=== PATIENT | male | born 1940 | race Two or more races ===

== ENCOUNTER 2021-03-29 19:12 | Inpatient (IN) | payer OTHER ==
[~2021-03-29] VITALS: Ht 172.7 cm; Wt 104.4 kg
[2021-03-29 20:16] LABS: Basophils # (auto) 0 10 ^3/uL (0-0.2); Basophils % (auto) 0.5 % (0.0-2.0); Eosinophils # (auto) 0.2 10 ^3/uL (0-0.8); Eosinophils % (auto) 2.2 % (0.0-7.0); Hematocrit 28.8 % (36.0-46.0); Hemoglobin 9.8 g/dL (12.2-16.2); Lymphocytes # (auto) 1.6 10 ^3/uL (0.4-5.4); Lymphocytes % (auto) 20.8 % (10.0-50.0); Mean Corpuscular Hemoglobin 31.1 pg (28.0-32.0); Mean Corpuscular Hgb Conc. 33.9 g/dL (32.0-36.0); Mean Corpuscular Volume 91.7 fL (80.0-100.0); Monocytes # (auto) 0.7 10 ^3/uL (0-1.3); Neutrophils # (auto) 5.3 10 ^3/uL (1.6-8.6); Neutrophils % (auto) 67.5 % (37.0-80.0); Nucleated Red Blood Cells % 0.1 %; Red Blood Cells 3.14 10^6/uL (4.0-5.20); Red Cell Distribution Width 14.2 % (11.8-14.3); White Blood Cell 7.9 10^3/uL (4.4-10.8)
[2021-03-29 20:34] LABS: Albumin 3.3 g/dL (3.4-5.0); BUN/Creatinine Ratio 9.8; Calcium 8.9 mg/dL (8.5-10.1); Magnesium 2.3 mg/dL (1.6-2.6); Potassium 4.9 mmol/L (3.5-5.1)
[2021-03-29 20:43] LABS: Bilirubin, Total 0.5 mg/dL (0.2-1.0); Total Protein 7.5 g/dL (6.4-8.2)
[2021-03-30] MEDS ORDERED: NITROGLYCERIN 0.2MG/HR TOPICAL PATCH TD ONE (03:00)
[2021-03-30] MEDS ORDERED: ENALAPRILAT 1.25 MG/ML-1ML VIAL IV ONE (03:00)
[2021-03-30 08:57] LABS: Calcium 8.6 mg/dL (8.5-10.1); Potassium 4.7 mmol/L (3.5-5.1)
[2021-03-30 08:59] LABS: BUN/Creatinine Ratio 10.4
[2021-03-30] MEDS ORDERED: MORPHINE SULFATE INJECTION 2 MG/ML SYRG IV PRN (09:30)
[2021-03-30] MEDS ORDERED: NITROGLYCERIN 0.4 MG SL TAB SL PRN (09:30)
[2021-03-30] MEDS ORDERED: DEXTROSE (50%) 50ML SYRG IV ONE (09:45)
[2021-03-30] MEDS ORDERED: SOD CHL 0.45% 1,000 ML IV ONE ×2 (09:45)
[2021-03-30 11:06] LABS: INR 1.03 (0.9-1.15)
[2021-03-30] MEDS ORDERED: ACCU-CHEK COMFORT CURVE STRIP VI ONE (11:30)
[2021-03-30] MEDS ORDERED: InsuLIN REG 1unit/0.01ml Soln (100units/ml) SC ONE (11:30)
[2021-03-30] MEDS: FUROSEMIDE 40 MG/4 ML VIAL IV SCH (11:50)
[2021-03-30 13:30] LABS: Urine Bacteria NONE SEEN /hpf (None Seen); Urine Blood TRACE /uL (Negative); Urine Specific Gravity 1.007 (1.001-1.035); Urine WBC 1 /hpf (0 - 3)
[2021-03-30 13:50] LABS: Protein, Urine 134.9 mg/dL (0.0-11.9)
[2021-03-30 22:00] VITALS: BP 159/82
[2021-03-31 05:16] VITALS: BP 152/80
[2021-03-31 06:30] LABS: Calcium 8.8 mg/dL (8.5-10.1); Potassium 4.5 mmol/L (3.5-5.1)
[2021-03-31 06:35] LABS: BUN/Creatinine Ratio 10.6; Bilirubin, Total 0.3 mg/dL (0.2-1.0); Total Protein 6.8 g/dL (6.4-8.2)
[2021-03-31 06:36] LABS: Basophils # (auto) 0 10 ^3/uL (0-0.2); Basophils % (auto) 0.7 % (0.0-2.0); Eosinophils # (auto) 0.2 10 ^3/uL (0-0.8); Eosinophils % (auto) 3.5 % (0.0-7.0); Hematocrit 26.4 % (41.0-53.0); Hemoglobin 9.1 g/dL (13.5-17.5); Lymphocytes # (auto) 1.1 10 ^3/uL (0.4-5.4); Lymphocytes % (auto) 16.7 % (10.0-50.0); Mean Corpuscular Hemoglobin 31.5 pg (28.0-32.0); Mean Corpuscular Hgb Conc. 34.7 g/dL (32.0-36.0); Mean Corpuscular Volume 90.9 fL (80.0-100.0); Monocytes # (auto) 0.7 10 ^3/uL (0-1.3); Monocytes % (auto) 9.9 % (0.0-12.0); Neutrophils # (auto) 4.7 10 ^3/uL (1.6-8.6); Neutrophils % (auto) 69.2 % (37.0-80.0); Red Cell Distribution Width 14.3 % (11.8-14.3); White Blood Cell 6.8 10^3/uL (4.4-10.8)
[2021-03-31 08:58] VITALS: BP 148/78
[2021-03-31] MEDS: FUROSEMIDE 40 MG/4 ML VIAL IV SCH (10:26)
[2021-03-31 12:38] VITALS: BP 146/74
[2021-03-31 17:00] VITALS: BP 151/76
[2021-03-31] MEDS ORDERED: HYDR50TA15 PO (17:03)
[2021-03-31] MEDS: SEVELAMER 800 MG TAB PO SCH (18:17)
[2021-03-31 22:00] VITALS: BP 172/84
[2021-03-31 23:45] VITALS: BP 159/90
[2021-04-01 05:27] VITALS: BP 131/77
[2021-04-01] MEDS ORDERED: SODIUM CHL 0.9% 1000 ML BAG XX ONE (07:00)
[2021-04-01 07:20] LABS: Basophils # (auto) 0.1 10 ^3/uL (0-0.2); Basophils % (auto) 0.7 % (0.0-2.0); Eosinophils # (auto) 0.3 10 ^3/uL (0-0.8); Eosinophils % (auto) 4.4 % (0.0-7.0); Hematocrit 26.9 % (41.0-53.0); Hemoglobin 9.2 g/dL (13.5-17.5); Lymphocytes # (auto) 1.6 10 ^3/uL (0.4-5.4); Lymphocytes % (auto) 22.5 % (10.0-50.0); Mean Corpuscular Hemoglobin 30.9 pg (28.0-32.0); Mean Corpuscular Hgb Conc. 34.2 g/dL (32.0-36.0); Mean Corpuscular Volume 90.6 fL (80.0-100.0); Monocytes # (auto) 0.6 10 ^3/uL (0-1.3); Monocytes % (auto) 8.2 % (0.0-12.0); Neutrophils # (auto) 4.7 10 ^3/uL (1.6-8.6); Neutrophils % (auto) 64.2 % (37.0-80.0); Nucleated Red Blood Cells % 0.1 %; Red Blood Cells 2.97 10^6/uL (4.5-5.90); Red Cell Distribution Width 14.1 % (11.8-14.3); White Blood Cell 7.3 10^3/uL (4.4-10.8)
[2021-04-01 07:33] LABS: Potassium 4.5 mmol/L (3.5-5.1)
[2021-04-01 07:41] LABS: Albumin 2.9 g/dL (3.4-5.0); BUN/Creatinine Ratio 11.2; Bilirubin, Total 0.5 mg/dL (0.2-1.0); Calcium 8.5 mg/dL (8.5-10.1); Total Protein 6.6 g/dL (6.4-8.2)
[2021-04-01 07:49] LABS: Partial Thromboplastin Time 26.3 sec (23.0-31.2)
[2021-04-01] MEDS: SEVELAMER 800 MG TAB PO SCH ×3 (08:00→18:01)
[2021-04-01 09:00] VITALS: BP 139/77
[2021-04-01] MEDS: FUROSEMIDE 40 MG/4 ML VIAL IV SCH (10:00)
[2021-04-01] MEDS: B-COMPLEX W/ C & FOLIC ACID(NEPHROVITE TAB) PO SCH (10:00)
[2021-04-01] MEDS ORDERED: LIDOCAINE 2%HCL (LOCAL ANESTH.) INJ 20ML MDV ONE (10:27)
[2021-04-01] MEDS ORDERED: HEPARIN SODIUM (PORCINE) 5000 UNITS/ML 1ML VIAL ONE (10:59)
[2021-04-01] MEDS ORDERED: fentaNYL CITRATE 100 MCG/2 ML VL ONE (11:00)
[2021-04-01] MEDS ORDERED: MIDAZOLAM HCL 2MG/2ML 2ml VIAL (1mg/ml) ONE (11:00)
[2021-04-01 16:38] VITALS: BP 153/78
[2021-04-01 17:23] LABS: Urine Bacteria FEW /hpf (None Seen); Urine Blood 3+ /uL (Negative); Urine Hyaline Cast FEW /lpf (0 - 2); Urine Mucus FEW (None Seen); Urine Specific Gravity 1.021 (1.001-1.035); Urine WBC 62 /hpf (0 - 3)
[2021-04-01] MEDS ORDERED: EPOETIN ALFA-EPBX 10,000 UNIT/1ML VIAL SC ONE (21:00)
[2021-04-01 22:00] VITALS: BP 135/67
[2021-04-02 05:45] VITALS: BP 143/70
[2021-04-02] MEDS: SEVELAMER 800 MG TAB PO SCH ×3 (08:39→17:10)
[2021-04-02] MEDS: B-COMPLEX W/ C & FOLIC ACID(NEPHROVITE TAB) PO SCH (08:39)
[2021-04-02] MEDS: FUROSEMIDE 40 MG/4 ML VIAL IV SCH (08:40)
[2021-04-02 09:00] VITALS: BP 122/72
[2021-04-02 13:00] VITALS: BP 159/70
[2021-04-02 17:00] VITALS: BP 149/74
[2021-04-02 22:00] VITALS: BP 155/73
[2021-04-03 05:00] VITALS: BP 149/72
[2021-04-03] MEDS: SEVELAMER 800 MG TAB PO SCH ×2 (08:31→12:40)
[2021-04-03 09:00] VITALS: BP 149/69
[2021-04-03] MEDS: FUROSEMIDE 40 MG/4 ML VIAL IV SCH (09:31)
[2021-04-03] MEDS: B-COMPLEX W/ C & FOLIC ACID(NEPHROVITE TAB) PO SCH (09:31)
[2021-04-03] MEDS ORDERED: SEVE800T PO (11:50)
[2021-04-03 12:24] LABS: BUN/Creatinine Ratio 11.5; Calcium 8.6 mg/dL (8.5-10.1); Potassium 4.1 mmol/L (3.5-5.1)
[2021-04-03] MEDS ORDERED: CAR3125T PO (12:55)
[2021-04-03] MEDS ORDERED: FURO1TAB33 PO (12:55)
[2021-04-03] MEDS ORDERED: HYDR25TA87 PO (12:55)
[2021-04-03 13:00] VITALS: BP 159/65
[2021-04-03] MEDS ORDERED: hydrALAZINE HCL 25 MG TAB PO ONE (13:00)
[2021-04-04 12:42] LABS: Hepatitis B Surface Antibody Negative
[2021-04-04 13:15] LABS: Hepatitis A Total Antibody Positive
[2021-04-04 13:56] LABS: Hepatitis B Core Total AB Negative; Hepatitis B Surface Antigen Negative (Negative); Hepatitis C Antibody Negative (Negative)
== END 2021-04-03 15:18 | disposition home health service (06) | DRG 280 ==
LOC: EDSEX 19:14 → ER 19:14 → TELE 19:15 → UNDOADMIN 19:15 → OBSVTOIN 19:35 → UNDOADMOB 19:35 → OVERFLOW 19:35 → INTOOBSV 19:35 → ER 03-30 09:18 → TELE-WESTW 03-30 09:18 → OVERFLOW 03-30 09:18 → UNDOADMOB 03-30 09:18 → INTOOBSV 03-30 09:18 → TELE 03-30 09:28 → INTOOBSV 03-30 13:53 → OBSVTOIN 03-30 13:53 → OVERFLOW 03-30 20:24 → TELE-WESTW 03-30 20:24 → OBSVTOIN 03-31 13:56 → UNDODISIN 04-03 15:17 → TELE-WESTW 05-04 14:42 → TELE 05-04 14:42
PROVIDERS: ADMIT Internal Medicine; ATTEND Internal Medicine
PROC: 5A1D70Z Performance of Urinary Filtration, Intermittent, Less than 6 Hours Per Day (ICD-10-PCS; principal; 2021-04-01)
PROC: 0JH63XZ Insertion of Tunneled Vascular Access Device into Chest Subcutaneous Tissue and Fascia, Percutaneous Approach (ICD-10-PCS; 2021-04-01)
PROC: 02HV33Z Insertion of Infusion Device into Superior Vena Cava, Percutaneous Approach (ICD-10-PCS; 2021-04-01)
PROC: B5181ZA Fluoroscopy of Superior Vena Cava using Low Osmolar Contrast, Guidance (ICD-10-PCS; 2021-04-01)
PROC: B548ZZA Ultrasonography of Superior Vena Cava, Guidance (ICD-10-PCS; 2021-04-01)
DX: I21.4 Non-ST elevation (NSTEMI) myocardial infarction (principal); N18.6 End stage renal disease; I13.2 Hypertensive heart and chronic kidney disease with heart failure and with stage 5 chronic kidney disease, or end stage renal disease; N04.9 Nephrotic syndrome with unspecified morphologic changes; I50.9 Heart failure, unspecified; D63.1 Anemia in chronic kidney disease; E11.22 Type 2 diabetes mellitus with diabetic chronic kidney disease; E83.39 Other disorders of phosphorus metabolism; Z20.822 Contact with and (suspected) exposure to COVID-19; E86.1 Hypovolemia; I25.2 Old myocardial infarction; Z99.2 Dependence on renal dialysis; N26.1 Atrophy of kidney (terminal)
CPT/HCPCS: 36415; 36561; 36600; 71045; 76775; 76942; 77001; 78582; 80048; 80053; 81001; 82306; 82570; 82805; 82962; 83605; 83735; 83880; 83970; 84100; 84156; 84300; 84484; 85025; 85379; 85610; 85730; 86704; 86706; 86708; 86803; 87340; 87426; 90935; 93005; 93306; 96361; 96374; 99152; G0378; J1642; J2250

== ENCOUNTER 2021-04-07 22:46 | Emergency (ER) | payer OTHER ==
[~2021-04-07] VITALS: Ht 172.7 cm; Wt 87.1 kg
[~2021-04-07 22:46] MED LIST: CAR3125T PO; FURO1TAB33 PO; HYDR25TA87 PO; HYDR50TA15 PO; SEVE800T PO
[2021-04-08 02:20] VITALS: BP 124/52
== END 2021-04-08 03:23 | disposition home or self-care (01) ==
LOC: ER 22:46
DX: S50.12XA Contusion of left forearm, initial encounter (principal); E11.22 Type 2 diabetes mellitus with diabetic chronic kidney disease; I12.0 Hypertensive chronic kidney disease with stage 5 chronic kidney disease or end stage renal disease; N18.6 End stage renal disease; Z87.891 Personal history of nicotine dependence; X58.XXXA Exposure to other specified factors, initial encounter; Y93.89 Activity, other specified; Y92.89 Other specified places as the place of occurrence of the external cause; Y99.8 Other external cause status
CPT/HCPCS: 93971